=== PATIENT | female | born 1980 | race Caucasian/White ===

== ENCOUNTER 2023-04-02 21:36 | Emergency (ER) | payer BC ==
[2023-04-02 21:50] VITALS: BP 121/76; PULSE 111
== END 2023-04-02 22:14 | disposition home or self-care (01) ==
LOC: JP.ED 21:36
DX: L76.82 Other postprocedural complications of skin and subcutaneous tissue (principal); Z79.899 Other long term (current) drug therapy; Z88.0 Allergy status to penicillin; Z88.5 Allergy status to narcotic agent
CPT/HCPCS: 99283